=== PATIENT | male | born 1965 | race Caucasian/White ===

== ENCOUNTER 2017-09-15 10:35 | Inpatient (IN) | payer OTHER, MEDICARE ==
[2017-09-15] MEDS ORDERED: MORPHINE SULFATE 4 MG/ML DISP.SYRIN. IV (11:15)
[2017-09-15] MEDS ORDERED: hydrALAZINE 20 MG/ML VIAL. IVP (11:15)
[2017-09-15] MEDS ORDERED: traMADol 50 MG TABLET PO (11:15)
[2017-09-15] MEDS ORDERED: DOCUSATE SODIUM 100 MG CAPSULE. PO (11:15)
[2017-09-15] MEDS: MORPHINE SULFATE 4 MG/ML DISP.SYRIN. IV ×2 (14:13→19:52)
[2017-09-15] MEDS: ONDANSETRON PF 4 MG/2 ML VIAL. IV ×2 (14:15→19:52)
[2017-09-15] MEDS: PANTOPRAZOLE IV PUSH 40 MG VIAL. IVP ×2 (14:15→22:51)
[2017-09-15] MEDS: GABAPENTIN 400 MG CAPSULE. PO ×3 (16:25→21:00)
[2017-09-15] MEDS: METHADONE 5 MG TABLET. PO (21:00)
[2017-09-15] MEDS: SUCRALFATE 1 GM TABLET. PO (21:00)
[2017-09-15] MEDS: TOPIRAMATE 25 MG TABLET. PO (21:00)
[2017-09-15] MEDS: clonazePAM 0.5 MG TABLET PO (21:00)
[2017-09-15] MEDS: QUETIAPINE FUMARATE 50 MG PO (21:00)
[2017-09-16] MEDS: ACETAMINOPHEN 325 MG TABLET. PO (04:12)
[2017-09-16 04:57] LABS: ADD MAN DIFF? NO
[2017-09-16 05:07] LABS: BASO % 0 % (0-3); EOS # 0.1 x10^3/uL (0.0-0.7); EOS % 1 % (0-3); HEMATOCRIT 36.4 % (39.0-53.0); HEMOGLOBIN 12.4 g/dL (13.0-17.5); LYMPH # 1.7 x10^3/uL (1.0-4.8); LYMPH % 22 % (24-48); MEAN CORPUSCULAR HEMOGLOBIN 29 pg (25-35); MEAN CORPUSCULAR HGB CONC 34 g/dL (31-37); MEAN CORPUSCULAR VOLUME 84 fL (79-100); MONO # 0.5 x10^3/uL (0.0-1.1); MONO % 7 % (0-9); NEUT # 5.3 x10^3uL (1.8-7.7); NEUT % 70 % (31-73); PLATELET COUNT 283 x10^3/uL (140-400); RED BLOOD COUNT 4.36 x10^6/uL (4.30-5.70); RED CELL DISTRIBUTION WIDTH 13.1 % (11.5-14.5); WHITE BLOOD COUNT 7.5 x10^3/uL (4.0-11.0)
[2017-09-16 05:23] LABS: ANION GAP 13 (6-14); BLOOD UREA NITROGEN 24 mg/dL (8-26); CALCIUM 8.6 mg/dL (8.5-10.1); CARBON DIOXIDE 21 mmol/L (21-32); CHLORIDE 107 mmol/L (98-107); GFR 79.1; GLUCOSE 106 mg/dL (70-99); POTASSIUM 3.4 mmol/L (3.5-5.1); SODIUM 141 mmol/L (136-145)
[2017-09-16] MEDS: clonazePAM 0.5 MG TABLET PO ×3 (08:58→20:54)
[2017-09-16] MEDS: TOPIRAMATE 25 MG TABLET. PO ×2 (08:59→20:56)
[2017-09-16] MEDS: CETIRIZINE HCL 10 MG TABLET. PO (09:00)
[2017-09-16] MEDS: LOSARTAN POTASSIUM 50 MG TABLET. PO (09:00)
[2017-09-16] MEDS: MESALAMINE 0.375 GM PO (09:00)
[2017-09-16] MEDS: ATORVASTATIN CALCIUM 40 MG TABLET. PO (09:00)
[2017-09-16] MEDS: OMEGA-3 FATTY ACIDS/FISH OIL 1,000 MG CAPSULE. PO ×2 (09:00→20:54)
[2017-09-16] MEDS: SUCRALFATE 1 GM TABLET. PO ×2 (09:00→20:56)
[2017-09-16] MEDS: FENOFIBRATE,MICRONIZED 134 MG CAPSULE PO (09:00)
[2017-09-16] MEDS: GABAPENTIN 400 MG CAPSULE. PO ×3 (09:00→20:54)
[2017-09-16] MEDS: METHADONE 5 MG TABLET. PO ×2 (09:00→20:55)
[2017-09-16] MEDS: hydroCHLOROthiazide 25 MG TABLET PO (09:00)
[2017-09-16] MEDS: amLODIPine BESYLATE 10 MG TABLET PO (09:00)
[2017-09-16] MEDS: PANTOPRAZOLE IV PUSH 40 MG VIAL. IVP (09:01)
[2017-09-16] MEDS: ONDANSETRON PF 4 MG/2 ML VIAL. IV (09:28)
[2017-09-16] MEDS: IV NORMAL SALINE 1000ML BAG 1,000 ML IV (15:00)
[2017-09-16] MEDS ORDERED: PROPOFOL 20 ML IV (15:38)
[2017-09-16] MEDS ORDERED: LIDOCAINE 2% PF Vial for OR 5 ML VIAL. (15:38)
[2017-09-16] MEDS: MORPHINE SULFATE 4 MG/ML DISP.SYRIN. IV ×2 (18:24→20:57)
[2017-09-16] MEDS: QUEtiapine 50 MG TAB.ER.24H. PO (20:53)
[2017-09-17] MEDS: MORPHINE SULFATE 4 MG/ML DISP.SYRIN. IV ×2 (02:32→05:22)
[2017-09-17] MEDS: IV NORMAL SALINE 1000ML BAG 1,000 ML IV (04:57)
[2017-09-17 05:07] LABS: HEMATOCRIT 39.4 % (39.0-53.0); HEMOGLOBIN 13.5 g/dL (13.0-17.5); MEAN CORPUSCULAR HGB CONC 34 g/dL (31-37)
[2017-09-17 05:28] LABS: ANION GAP 12 (6-14); BLOOD UREA NITROGEN 15 mg/dL (8-26); CALCIUM 9.1 mg/dL (8.5-10.1); CARBON DIOXIDE 23 mmol/L (21-32); CHLORIDE 104 mmol/L (98-107); CREATININE 0.9 mg/dL (0.7-1.3); GFR 89.3; GLUCOSE 98 mg/dL (70-99); SODIUM 139 mmol/L (136-145)
[2017-09-17 05:56] LABS: POTASSIUM 2.8 mmol/L (3.5-5.1)
[2017-09-17] MEDS: ATORVASTATIN CALCIUM 40 MG TABLET. PO (08:45)
[2017-09-17] MEDS: CETIRIZINE HCL 10 MG TABLET. PO (08:46)
[2017-09-17] MEDS: GABAPENTIN 400 MG CAPSULE. PO ×2 (08:46→14:24)
[2017-09-17] MEDS: PANTOPRAZOLE 40 MG TABLET.DR. PO (08:46)
[2017-09-17] MEDS: FENOFIBRATE,MICRONIZED 134 MG CAPSULE PO (08:46)
[2017-09-17] MEDS: METHADONE 5 MG TABLET. PO (08:46)
[2017-09-17] MEDS: clonazePAM 0.5 MG TABLET PO (08:46)
[2017-09-17] MEDS: TOPIRAMATE 25 MG TABLET. PO (08:46)
[2017-09-17] MEDS: SUCRALFATE 1 GM TABLET. PO (08:46)
[2017-09-17] MEDS: amLODIPine BESYLATE 10 MG TABLET PO (08:47)
[2017-09-17] MEDS: LOSARTAN POTASSIUM 50 MG TABLET. PO (08:47)
[2017-09-17] MEDS: hydroCHLOROthiazide 25 MG TABLET PO (08:47)
[2017-09-17] MEDS: OMEGA-3 FATTY ACIDS/FISH OIL 1,000 MG CAPSULE. PO (08:51)
[2017-09-17] MEDS ORDERED: POTASSIUM CHLORIDE 20MEQ 50 ML IV (09:15)
[2017-09-17 09:19] LABS: MAGNESIUM 2.2 mg/dL (1.8-2.4)
[2017-09-17] MEDS: POTASSIUM CHLORIDE 10MEQ 100 ML IV ×4 (11:07→18:54)
[2017-09-17] MEDS ORDERED: MORPHINE SULFATE 2 MG/ML DISP.SYRIN. IV (14:36)
[2017-09-17 20:04] LABS: POTASSIUM 3.7 mmol/L (3.5-5.1)
== END 2017-09-17 21:30 | disposition home or self-care (01) | DRG 392 ==
LOC: 5 SOUTH 10:35
PROC: 0DJ08ZZ Inspection of Upper Intestinal Tract, Via Natural or Artificial Opening Endoscopic (ICD-10-PCS; principal; 2017-09-16 15:00)
DX: K21.0 Gastro-esophageal reflux disease with esophagitis (principal); K92.0 Hematemesis; F41.9 Anxiety disorder, unspecified; G89.29 Other chronic pain; F31.9 Bipolar disorder, unspecified; J45.909 Unspecified asthma, uncomplicated; E87.6 Hypokalemia; K76.89 Other specified diseases of liver; K42.9 Umbilical hernia without obstruction or gangrene; I10 Essential (primary) hypertension; Z87.11 Personal history of peptic ulcer disease; Z88.1 Allergy status to other antibiotic agents; Z88.8 Allergy status to other drugs, medicaments and biological substances; Z79.891 Long term (current) use of opiate analgesic; Z90.49 Acquired absence of other specified parts of digestive tract; Z83.3 Family history of diabetes mellitus; Z80.0 Family history of malignant neoplasm of digestive organs; Z82.49 Family history of ischemic heart disease and other diseases of the circulatory system
CPT/HCPCS: 36415; 80048; 83735; 84132; 85014; 85018; 85025; C9113; J2060; J2270; J2405; J2704; J3480; J7030

== ENCOUNTER → 2021-03-21 | Outpatient (CLI) | payer OTHER, MEDICARE ==
[2017-09-17 19:00] VITALS: BP 136/90
[~2021-03-21] MED LIST: AMLO-187 PO; ASPI81TA50 PO; ATOR40TA59 PO; CLON-77 PO; ESOM40CA PO; FENO135C2 PO; FEXO180T16 PO; GABA800T5 PO; IBUP-1007 PO; LOSA1TAB22 PO; MESA0.372 PO; METH-570 PO; OMEG1CAP38 PO; Pantoprazole PO; QUET50TA5 PO; RANI300T PO; SUCR1TAB PO; TOPI50TA8 PO
[2021-03-21 10:59] LABS: BASO % 1 % (0-3); EOS # 0.2 x10^3/uL (0.0-0.7); EOS % 4 % (0-3); HEMOGLOBIN 13.2 g/dL (13.0-17.5); LYMPH # 1.8 x10^3/uL (1.0-4.8); LYMPH % 34 % (24-48); MEAN CORPUSCULAR HEMOGLOBIN 28 pg (25-35); MEAN CORPUSCULAR HGB CONC 32 g/dL (31-37); MEAN CORPUSCULAR VOLUME 87 fL (79-100); MONO # 0.4 x10^3/uL (0.0-1.1); MONO % 7 % (0-9); NEUT # 2.9 x10^3/uL (1.8-7.7); NEUT % 56 % (31-73); PLATELET COUNT 264 x10^3/uL (140-400); RED BLOOD COUNT 4.69 x10^6/uL (4.30-5.70); RED CELL DISTRIBUTION WIDTH 19.3 % (11.5-14.5); WHITE BLOOD COUNT 5.3 x10^3/uL (4.0-11.0)
== END ==
LOC: SPEC 10:39
PROVIDERS: ATTEND Internal Medicine Hematology & Oncology
DX: D72.828 Other elevated white blood cell count (principal)
CPT/HCPCS: 36415; 82607; 82746; 85025

== ENCOUNTER → 2021-05-02 | Outpatient (CLI) | payer OTHER, MEDICARE ==
[2017-09-17 19:00] VITALS: BP 136/90
[2021-05-02 11:39] LABS: BASO # 0.1 x10^3/uL (0.0-0.2); BASO % 1 % (0-3); EOS # 0.3 x10^3/uL (0.0-0.7); EOS % 5 % (0-3); HEMATOCRIT 36.7 % (39.0-53.0); HEMOGLOBIN 12.3 g/dL (13.0-17.5); LYMPH % 36 % (24-48); MEAN CORPUSCULAR HEMOGLOBIN 29 pg (25-35); MEAN CORPUSCULAR HGB CONC 33 g/dL (31-37); MEAN CORPUSCULAR VOLUME 86 fL (79-100); MONO # 0.5 x10^3/uL (0.0-1.1); MONO % 10 % (0-9); NEUT # 2.7 x10^3/uL (1.8-7.7); NEUT % 49 % (31-73); PLATELET COUNT 250 x10^3/uL (140-400); RED BLOOD COUNT 4.25 x10^6/uL (4.30-5.70); WHITE BLOOD COUNT 5.5 x10^3/uL (4.0-11.0)
== END ==
LOC: ONCLAB 11:09
PROVIDERS: ATTEND Internal Medicine Hematology & Oncology
DX: D72.828 Other elevated white blood cell count (principal)
CPT/HCPCS: 36415; 85025

== ENCOUNTER → 2021-08-27 | Outpatient (CLI) | payer BC ==
[2017-09-17 19:00] VITALS: BP 136/90
[~2021-08-27] MED LIST changes: +FEXO-213 PO; -FEXO180T16 PO
[2021-08-27 15:33] LABS: BASO # 0.1 x10^3/uL (0.0-0.2); BASO % 1 % (0-3); EOS # 0.3 x10^3/uL (0.0-0.7); EOS % 4 % (0-3); HEMATOCRIT 33.1 % (39.0-53.0); HEMOGLOBIN 10.8 g/dL (13.0-17.5); LYMPH # 2.2 x10^3/uL (1.0-4.8); LYMPH % 38 % (24-48); MEAN CORPUSCULAR HEMOGLOBIN 28 pg (25-35); MEAN CORPUSCULAR HGB CONC 33 g/dL (31-37); MEAN CORPUSCULAR VOLUME 84 fL (79-100); MONO # 0.4 x10^3/uL (0.0-1.1); MONO % 8 % (0-9); NEUT # 2.8 x10^3/uL (1.8-7.7); NEUT % 49 % (31-73); PLATELET COUNT 305 x10^3/uL (140-400); RED BLOOD COUNT 3.94 x10^6/uL (4.30-5.70); RED CELL DISTRIBUTION WIDTH 13.7 % (11.5-14.5); WHITE BLOOD COUNT 5.8 x10^3/uL (4.0-11.0)
== END ==
LOC: ONCLAB 14:12
PROVIDERS: ATTEND Internal Medicine Hematology & Oncology
DX: D72.828 Other elevated white blood cell count (principal); D50.0 Iron deficiency anemia secondary to blood loss (chronic)
CPT/HCPCS: 36415; 82728; 83540; 83550; 85025